=== PATIENT | male | born 1955 | race Caucasian/White ===

== ENCOUNTER 2018-12-17 06:46 | Emergency (ER) | payer OTHER ==
[~2018-12-17] VITALS: Ht 177.8 cm; Wt 59.9 kg
[2018-12-17] MEDS ORDERED: METOPROLOL SUCC ER 50 MG TAB (07:05)
[2018-12-17] MEDS ORDERED: MIGRAINE MEDICATION PO (07:05)
[2018-12-17] MEDS ORDERED: IBUP-23 PO (07:05)
--- NOTE | 2018-12-17 07:08 | NUR ---
Pt out of ER for CT.
[2018-12-17] MEDS ORDERED: KETOROLAC TROMETHAMINE 30 MG INJ ONE (08:11)
[2018-12-17] MEDS ORDERED: KETOROLAC TROMETHAMINE 30 MG INJ IM ONE (08:30)
[2018-12-17 09:17] VITALS: BP 122/81
--- NOTE | 2018-12-17 09:18 | NUR ---
Patient discharged to home in stable conditon. Written and verbal after care instructions given. Patient verbalizes understanding of instructions.
== END 2018-12-17 09:18 | disposition home or self-care (01) ==
LOC: ER 06:48
DX: S13.4XXA Sprain of ligaments of cervical spine, initial encounter (principal); S23.3XXA Sprain of ligaments of thoracic spine, initial encounter; Z79.899 Other long term (current) drug therapy; V89.2XXA Person injured in unspecified motor-vehicle accident, traffic, initial encounter; Y93.89 Activity, other specified; Y92.89 Other specified places as the place of occurrence of the external cause; Y99.8 Other external cause status
CPT/HCPCS: 71250; 72125; 72128; 74176; 96372; 99284; J1885; A4663